=== PATIENT | female | born 1965 | race Caucasian/White ===

== ENCOUNTER 2023-11-05 09:12 | Day surgery (SDC) | payer OTHER ==
[~2023-11-05] VITALS: Ht 157.5 cm; Wt 68.9 kg
[2023-11-05] MEDS ORDERED: MIDAZOLAM 2 MG/2 ML VIAL ONE (10:19)
[2023-11-05] MEDS ORDERED: fentaNYL citrate 0.05 MG/ML VIAL ONE (10:20)
[2023-11-05] MEDS ORDERED: MIDAZOLAM 2 MG/2 ML VIAL IVP ONE (13:40)
== END 2023-11-05 11:31 | disposition home or self-care (01) ==
LOC: MDS 09:12 → MMU 09:16 → MDS 11:31
PROVIDERS: ATTEND Internal Medicine Gastroenterology
DX: R12 Heartburn (principal); R10.10 Upper abdominal pain, unspecified; R14.0 Abdominal distension (gaseous); K22.70 Barrett's esophagus without dysplasia; K44.9 Diaphragmatic hernia without obstruction or gangrene
CPT/HCPCS: 43235; J2250; J3010